=== PATIENT | male | born 1990 | race Caucasian/White ===

== ENCOUNTER 2017-07-22 18:56 | Emergency (ER) | payer MEDICAID ==
[2017-07-22] MEDS ORDERED: Sodium Chloride 0.9% 1,000 ML IV ONE (19:25)
[2017-07-22] MEDS ORDERED: Ketorolac 30 MG/ML SDV IVPUSH ONE (19:26)
--- NOTE | 2017-07-22 20:15 | EDM.PDOC ---
ED HPI GENERAL MEDICAL PROBLEM - General Chief Complaint: Gastrointestinal Problem Stated Complaint: PT HAS STOMACH PAINS Time Seen by Provider: 07/22/17 19:07 Source of Information: Reports: Patient History Limitations: Reports: No Limitations - History of Present Illness INITIAL COMMENTS - FREE TEXT/NARRATIVE: HISTORY AND PHYSICAL: History of present illness: []26-year-old male with a history gastritis now presents to the emergency department complaining of nausea vomiting and intermittent crampy abdominal pain. Patient had the symptoms recently and then they recurred again today. He vomited twice earlier today. No fevers chills sweats or shaking chills. He reports normal bowel and bladder habits. Pain is not worse with movement. He did have runny nose congestion and cold symptoms yesterday Review of systems: As per history of present illness and below otherwise all systems reviewed and negative. Past medical history: As per history of present illness and as reviewed below otherwise noncontributory. Surgical history: As per history of present illness and as reviewed below otherwise noncontributory. Social history: No reported history of drug or alcohol abuse. Family history: As per history of present illness and as reviewed below otherwise noncontributory. Physical exam: Well-appearing patient in no acute distress. Clear lungs regular rate and rhythm no tachycardia normal bowel sounds no mass or megaly Mild diffuse midabdominal tenderness without guarding or rebound no skin changes and normal extremities HEENT: Atraumatic, normocephalic, pupils reactive, negative for conjunctival pallor or scleral icterus, mucous membranes moist, throat clear, neck supple, nontender, trachea midline. Lungs: Clear to auscultation, breath sounds equal bilaterally, chest nontender. Heart: S1S2, regular, negative for clicks, rubs, or JVD. Abdomen: Soft, nondistended, as above. Negative for masses or hepatosplenomegaly. Negative for costovertebral tenderness. Pelvis: Stable nontender. Genitourinary: Deferred. Rectal: Deferred. Extremities: Atraumatic, negative for cords or calf pain. Neurovascular unremarkable. Neuro: Awake, alert, oriented. Cranial nerves grossly unremarkable. Cerebellum unremarkable. Motor and sensory unremarkable throughout. Exam nonfocal. Diagnostics: [CT abdomen and pelvis and laboratory workup pending] Therapeutics: [Toradol IV administered as well as IV fluids] Impression: [] Plan: [Signs and symptoms consistent with suspected viral gastroenteritis in a well- appearing 26-year-old male with recent cold symptoms crampy abdominal pain and multiple episodes of vomiting today is. CT abdomen and pelvis as well as full laboratory workup pending to rule out other etiology. If unremarkable, Will prescribe Zofran and Levsin and patient will follow with primary care doctor tomorrow. He agrees with outpatient follow-up and strict return precautions will be given Definitive disposition and diagnosis as appropriate pending reevaluation and review of above. Bilateral Lower Abdominal Pain Score (Numeric/FACES): 7 - Related Data Allergies Allergy/AdvReac Type Severity Reaction Status Date / Time No Known Allergies Allergy Verified 07/22/17 19:15 Home Meds: Home Meds Hyoscyamine Sulfate [Levsin-Sl] 0.125 mg SL TID #20 tab.subl 07/22/17 [Rx] Ondansetron [Zofran ODT] 4 mg SL Q4H PRN #16 tab.dis 07/22/17 [Rx] Past Medical History Gastrointestinal History: Reports: PUD Social & Family History - Family History Family Medical History: Noncontributory - Tobacco Use Smoking Status *Q: Current Every Day Smoker Years of Tobacco use: 12 Packs/Tins Daily: 0.2 - Caffeine Use Caffeine Use: Reports: Coffee - Recreational Drug Use Recreational Drug Use: No ED ROS GENERAL - Review of Systems Review Of Systems: See Below (History of present illness) ED EXAM, GI/ABD - Physical Exam Exam: See Below (History of present illness) Course - Vital Signs Last Recorded V/S: Last Vital Signs Temp 36.4 C 07/22/17 19:05 Pulse 94 07/22/17 19:05 Resp 20 07/22/17 19:05 BP 129/73 07/22/17 19:05 Pulse Ox 94 L 07/22/17 19:05 - Orders/Labs/Meds Orders: Active Orders 24 hr Category Date Time Status Abdomen Pelvis w Cont [CT] Stat Exams 07/22/17 19:25 Taken Peripheral IV Insertion Adult [OM.PC] Stat Oth 07/22/17 19:25 Ordered Labs: Laboratory Tests 07/22/17 07/22/17 07/22/17 Range/Units 19:20 19:26 20:00 WBC 9.60 (4.0-11.0) K/uL RBC 4.73 (4.50-5.90) M/uL Hgb 14.6 (13.0-17.0) g/dL Hct 43.0 (38.0-50.0) % MCV 90.9 (80.0-98.0) fL MCH 30.9 (27.0-32.0) pg MCHC 34.0 (31.0-37.0) g/dL RDW Std Deviation 43.4 (28.0-62.0) fl RDW Coeff of Tucker 13 (11.0-15.0) % Plt Count 411 H (150-400) K/uL MPV 10.80 (7.40-12.00) fL Neut % (Auto) 63.3 (48.0-80.0) % Lymph % (Auto) 27.0 (16.0-40.0) % Grand % (Auto) 7.9 (0.0-15.0) % Eos % (Auto) 1.4 (0.0-7.0) % Baso % (Auto) 0.4 (0.0-1.5) % Neut # (Auto) 6.1 H (1.4-5.7) K/uL Lymph # (Auto) 2.6 H (0.6-2.4) K/uL Grand # (Auto) 0.8 (0.0-0.8) K/uL Eos # (Auto) 0.1 (0.0-0.7) K/uL Baso # (Auto) 0.0 (0.0-0.1) K/uL Nucleated RBC % 0.0 /100WBC Nucleated RBCs # 0 K/uL Sodium 141 (136-146) mmol/L Potassium 4.1 (3.5-5.1) mmol/L Chloride 110 (98-110) mmol/L Carbon Dioxide 25 (21-31) mmol/L BUN 18 (6.0-23.0) mg/dL Creatinine 1.0 (0.6-1.5) mg/dL Est Cr Clr Drug Dosing 115.11 mL/min Estimated GFR (MDRD) > 60.0 ml/min Glucose 96 (60-110) mg/dL Calcium 8.8 (8.8-10.8) mg/dL Total Bilirubin 0.2 (0.1-1.5) mg/dL AST 14 (5-40) IU/L ALT 23 (8-54) IU/L Alkaline Phosphatase 76 (40-150) Total Protein 6.4 (6.0-8.0) g/dL Albumin 3.9 (3.5-5.0) g/dL Globulin 2.5 (2.0-3.5) g/dL Albumin/Globulin Ratio 1.6 (1.3-2.8) Lipase 38 (7-80) U/L Urine Color YELLOW Urine Appearance CLEAR Urine pH 7.0 (5.0-8.0) Ur Specific [place] 1.020 (1.001-1.035) Urine Protein NEGATIVE (NEGATIVE) mg/dL Urine Glucose (UA) NEGATIVE (NEGATIVE) mg/dL Urine Ketones NEGATIVE (NEGATIVE) mg/dL Urine Occult Blood NEGATIVE (NEGATIVE) Urine Nitrite NEGATIVE (NEGATIVE) Urine Bilirubin NEGATIVE (NEGATIVE) Urine Urobilinogen 1.0 (<2.0) EU/dL Ur Leukocyte Esterase NEGATIVE (NEGATIVE) Urine RBC 0-1 (0-2/HPF) Urine WBC NONE SEEN (0-5/HPF) Ur Epithelial Cells RARE (NONE-FEW) Urine Bacteria RARE (NEGATIVE) Meds: Medications Discontinued Medications Generic Name Dose Route Start Last Admin Trade Name Freq PRN Reason Stop Dose Admin Sodium Chloride 1,000 mls @ 999 mls/hr 07/22/17 19:25 07/22/17 19:32 Normal Saline IV 07/22/17 20:25 999 mls/hr STAT ONE Administration Iopamidol 100 ml 07/22/17 21:06 07/22/17 21:07 Isovue Multipack-370 (76%) IVPUSH 07/22/17 21:07 100 ml ONETIME STA Administration Ketorolac Tromethamine 30 mg 07/22/17 19:26 07/22/17 19:37 Toradol IVPUSH 07/22/17 19:27 30 mg ONETIME ONE Administration Departure - Departure Time of Disposition: 21:11 Disposition: Home, Self-Care 01 Condition: Good Clinical Impression: Viral gastroenteritis, Constipation, Abdominal pain - Discharge Information Instructions: Viral Gastroenteritis, Adult, [id number], Abdominal Pain, Adult , [id number], Nausea and Vomiting, Adult, [id number], Constipation, Adult, [id number] Referrals: PCP,None [Primary Care Provider] - Forms: ED Department Discharge Additional Instructions: It appears you have gastroenteritis. This is a viral syndrome which causes nausea vomiting and typically crampy abdominal pain. Rest and drink plenty of fluids. Use Zofran under your tongue every 4 hours as needed for nausea. Take Levsin under your tongue 3 times a day as needed for crampy abdominal pain. If necessary take Tylenol for any persistent discomfort. Follow up with your tomorrow and return immediately for new severe or worsening symptoms - My Orders Last 24 Hours: My Active Orders 07/22/17 19:25 Abdomen Pelvis w Cont [CT] Stat Peripheral IV Insertion Adult [OM.PC] Stat - Assessment/Plan Last 24 Hours: My Active Orders 07/22/17 19:25 Abdomen Pelvis w Cont [CT] Stat Peripheral IV Insertion Adult [OM.PC] Stat
[2017-07-22 20:44] LABS: CHLORIDE,CL 110 mmol/L (98-110); SODIUM,NA 141 mmol/L (136-146)
[2017-07-22] MEDS ORDERED: Iopamidol 755 MG/ML 500 ML Multipack Bottle IVPUSH STA (21:06)
[2017-07-22] MEDS ORDERED: Ondansetron 4 MG/2 ML SDV IVPUSH ONE (21:11)
[2017-07-22 21:42] VITALS: BP 124/68
--- NOTE | 2017-07-23 11:52 | CT ---
EXAM DATE: 07/22/17 PATIENT'S AGE: 26 Patient: JB LUCERO Facility: [place], [place] Site . Site : [id number] Study: CT Abdomen/Pelvis [id number]/8/2017 8:43:01 PM Ordering Physician: Yunier Branham Final Report: INDICATION: Bilateral lower abdominal pain for 1 day TECHNIQUE: CT abdomen and pelvis acquired with 100 cc Isovue IV contrast. COMPARISON: None FINDINGS: Lower chest: Calcified granuloma left lower lobe. Liver: Unremarkable. Spleen: Unremarkable. Pancreas: Unremarkable. Gallbladder and bile ducts: Unremarkable. Adrenal glands: Unremarkable. Kidneys: Unremarkable. GI tract: Large amount of stool within the colon. Appendix is normal. Vascular structures: Unremarkable. Lymph nodes: Unremarkable. Miscellaneous: Unremarkable. No free air or significant free fluid. Pelvic Organs: Unremarkable. Bones: Unremarkable for age. IMPRESSION: Large amount of stool within the colon. Correlate with symptoms of constipation. No acute intra-abdominal inflammatory process. Normal appendix. Please note that all CT scans at this facility use dose modulation, iterative reconstruction, and/or weight-based dosing when appropriate to reduce radiation dose to as low as reasonably achievable. Dictated by Louise Bhatti MD @ Jul 22 2017 8:52PM (Electronic Signature) Report Signed by Proxy. [facility]
== END 2017-07-22 21:39 | disposition home or self-care (01) ==
LOC: MW.ED 18:56
DX: A08.4 Viral intestinal infection, unspecified (principal); K59.00 Constipation, unspecified; F17.210 Nicotine dependence, cigarettes, uncomplicated
CPT/HCPCS: 74177; 80053; 81001; 83690; 85025; 96361; 96374; 96375; 99284; J1885; J2405; J7040; Q9967; 99282